=== PATIENT | female | born 1985 | race Caucasian/White ===

== ENCOUNTER 2017-03-21 14:51 | Emergency (ER) | payer SELFPAY ==
[2017-03-21] MEDS ORDERED: LEVONORGESTREL 1.5 MG TABLET (1 TAB/ER-USE) PO ONE ×2 (16:26→20:30)
[2017-03-21] MEDS ORDERED: LIDOCAINE 1% INJ-PF (10 MG/ML) 30 ML SDV INJ ONE ×2 (16:26→20:00)
[2017-03-21] MEDS ORDERED: AZITHROMYCIN 250 MG TABLET PO ONE ×2 (16:26→20:30)
[2017-03-21] MEDS ORDERED: CEFTRIAXONE INJ 250 MG VIAL IM ONE ×2 (16:26→20:30)
[2017-03-21] MEDS ORDERED: EMTRICITABINE/TENOFOVIR 200-300 MG TAB (3 TAB/ER DISP) PO PRN (16:28)
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
[2017-03-21 17:41] LABS: ABSOLUTE EOSINOPHILS # (AUTO) 0.1 10^3/uL (0.0-0.6); ABSOLUTE LYMPHOCYTES (AUTO) 1.7 10^3/uL (0.5-4.7); ABSOLUTE MONOCYTES (AUTO) 0.4 10^3/uL (0.1-1.4); ABSOLUTE NEUT (AUTO) 5.2 10^3/uL (1.7-8.2); BASOPHILS % (AUTO) 0.6 % (0-2); EOSINOPHILS % (AUTO) 1.2 % (0-6); HEMATOCRIT 36.9 % (36.0-47.0); HGB HCT DIFFERENCE 2.1; LYMPHOCYTES % (AUTO) 22.4 % (13-45); MEAN CORPUSCULAR HEMOGLOBIN 31.5 pg (27.0-33.4); MEAN CORPUSCULAR HGB CONC 35.2 g/dL (32.0-36.0); MEAN CORPUSCULAR VOLUME 90 fl (80-97); MONOCYTES % (AUTO) 5.7 % (3-13); RED BLOOD COUNT 4.12 10^6/uL (3.72-5.28); RED CELL DISTRIBUTION WIDTH 13.1 % (11.5-14.0); SEGMENTED NEUTROPHILS % (AUTO) 70.1 % (42-78); WHITE BLOOD COUNT 7.4 10^3/uL (4.0-10.5)
[2017-03-21 17:45] LABS: APPEARANCE,URINE CLEAR; BILIRUBIN,URINE NEGATIVE (NEGATIVE); GLUCOSE, URINE NEGATIVE (NEGATIVE); KETONES,URINE NEGATIVE (NEGATIVE); LEUKOCYTE ESTERASE,URINE NEGATIVE (NEGATIVE); NITRITE,URINE NEGATIVE (NEGATIVE); PROTEIN,URINE NEGATIVE (NEGATIVE); URINE SPECIFIC GRAVITY 1.018; UROBILINOGEN,URINE NEGATIVE mg/dL (<2.0)
[2017-03-21 17:56] LABS: ALANINE AMINOTRANSFERASE 22 U/L (9-52); ALKALINE PHOSPHATASE 88 U/L (38-126); ANION GAP 10 (5-19); ASPARTATE AMINO TRANSFERASE 15 U/L (14-36); BILIRUBIN,DIRECT 0.3 mg/dL (0.0-0.4); BILIRUBIN,TOTAL 0.3 mg/dL (0.2-1.3); BLOOD UREA NITROGEN 15 mg/dL (7-20); CARBON DIOXIDE 25 mmol/L (22-30); CHLORIDE 105 mmol/L (98-107); CREATININE RESULT 0.75 mg/dL (0.52-1.25); GLUCOSE 107 mg/dL (75-110); SODIUM 139.7 mmol/L (137-145); TOTAL PROTEIN 6.9 g/dL (6.3-8.2)
[2017-03-21 18:36] LABS: ADD HIVPANEL? NO; HIV (1 AND 2) ANTIBODY NEGATIVE (NEGATIVE)
[2017-03-21] MEDS ORDERED: LIDOCAINE HCL 1% INJ (FOR 250 MG VIAL) INJ ONE (20:30)
[2017-03-21 21:09] LABS: CHLAM PCR NOT DETECTED (NOT DETECT)
[2017-03-21 22:14] VITALS: BP 130/89
== END 2017-03-21 21:30 | disposition home or self-care (01) ==
LOC: ER 14:51
DX: T74.21XA Adult sexual abuse, confirmed, initial encounter (principal); S70.12XA Contusion of left thigh, initial encounter; S70.11XA Contusion of right thigh, initial encounter; Y07.59 Other non-family member, perpetrator of maltreatment and neglect
CPT/HCPCS: 99285; 96372; 36415; 87210; 84703; 85025; 80053; 81001; 86701; 87491; 87591; A9270; J3490; J0696

== ENCOUNTER 2017-05-08 13:04 | Emergency (ER) | payer SELFPAY ==
--- NOTE | 2017-05-08 13:33 | ER Document Report ---
HPI - HPI Patient complains to provider of: Left index finger injury Onset: Other Onset/Duration: Sudden Quality of pain: Throbbing Severity: Moderate Pain Level: 3 Context: Patient states she jammed her left index finger about 3 weeks ago. Still having pain which radiates up the hand, and increased pain with flexing the finger. No previous medical treatment sought for this injury. Associated Symptoms: None Exacerbated by: Movement Relieved by: Denies Similar symptoms previously: No Recently seen / treated by doctor: No - ROS ROS below otherwise negative: Yes Systems Reviewed and Negative: Yes All other systems reviewed and negative - CONSTITUTIONAL Constitutional: DENIES: Fever - EENT EENT: DENIES: Congestion - NEURO Neurology: DENIES: Headache - CARDIOVASCULAR Cardiovascular: DENIES: Chest pain - RESPIRATORY Respiratory: DENIES: Trouble Breathing - GASTROINTESTINAL Gastrointestinal: DENIES: Abdominal Pain - URINARY Urinary: DENIES: Dysuria - REPRODUCTIVE Reproductive: DENIES: : - MUSCULOSKELETAL Musculoskeletal: REPORTS: Extremity pain - Left index finger - DERM Skin Color: Normal, [place] Past Medical History - General Information source: Patient - Social History Smoking Status: Never Smoker Frequency of alcohol use: None Drug Abuse: None Lives with: Family Family History: Reviewed & Not Pertinent, CVA - Mini strokes on her mother's side Patient has suicidal ideation: No Patient has homicidal ideation: No Renal/ Medical History: Reports: Hx Ovarian Cysts Past Surgical History: Reports: Hx Appendectomy, Hx Section - Immunizations Hx Diphtheria, Pertussis, Tetanus Vaccination: Yes Vertical Provider Document - CONSTITUTIONAL Agree With Documented VS: Yes Exam Limitations: No Limitations General Appearance: WD/WN, No Apparent Distress - INFECTION CONTROL TRAVEL OUTSIDE OF THE [place] IN LAST 30 DAYS: No COUNTRY TRAVELED TO/FROM: [place] - HEENT HEENT: Atraumatic, Normocephalic - RESPIRATORY Respiratory: Breath Sounds Normal, No Respiratory Distress - CARDIOVASCULAR Cardiovascular: Regular Rate, Regular Rhythm - GI/ABDOMEN Gastrointestinal: Abdomen Soft - MUSCULOSKELETAL/EXTREMETIES Musculoskeletal/Extremeties: Tender - Left index finger. Patient able to fully straighten out the finger, but when she tries to flex it pain increases. No bruising. Neurovascular and sensation intact., No Edema. negative: Eccymosis - NEURO Level of Consciousness: Awake, Alert, Appropriate - DERM Integumentary: Warm, Dry Course - Re-evaluation Re-evalutation: 05/08/17 14:16 X-ray showed small avulsion fracture and this was discussed with the patient. 05/08/17 14:23 - Vital Signs Vital signs: Temp Pulse Resp BP Pulse Ox 98.5 F 18 140/88 H 05/08/17 13:07 05/08/17 13:07 05/08/17 13:07 Procedures - Immobilization Left Finger Pre-Proc Neuro Vasc Exam: Normal Immobilizer type: Finger splint (Static), Sling Performed by: PCT Post-Proc Neuro Vasc Exam: Normal Alignment checked and good: Yes Discharge - Discharge Clinical Impression: Fracture of finger, left Qualifiers: Encounter type: initial encounter Finger: index finger Fracture type: closed Phalanx: proximal Fracture alignment: nondisplaced Qualified Code(s): S62.641A - Nondisplaced fracture of proximal phalanx of left index finger, initial encounter for closed fracture Condition: Good Disposition: HOME, SELF-CARE Additional Instructions: Ice and elevate finger, keep splint protection on until evaluated by orthopedic. Call tomorrow to schedule follow-up appointment with orthopedic Aleve every 12 hours with food, or [place] every 8 hours with food as needed for pain Ice and elevate Return as needed Prescriptions: Hydrocodone/Acetaminophen [Athena 5-325 mg Tablet] 1 tab PO PRN PRN #10 tablet PRN Reason: Referrals: JT MOMIN NP [Primary Care Provider] - Follow up as needed ERAN OHARA DO [ACTIVE STAFF] - Follow up as needed
--- NOTE | 2017-05-08 14:16 | RADIOLOGY REPORT (SQ) ---
EXAM DESCRIPTION: HAND LEFT 3 VIEWS COMPLETED DATE/TIME: 05/08/2017 1:54 pm REASON FOR STUDY: injury COMPARISON: None. EXAM PARAMETERS: NUMBER OF VIEWS: Three views. TECHNIQUE: AP, lateral and oblique radiographic images acquired of the left hand. LIMITATIONS: None. FINDINGS: MINERALIZATION: Normal. BONES: Along the radial aspect, base 2nd proximal phalanx, a tiny acute avulsion fragment is present marked with an arrow on the AP view. JOINTS: No effusions. SOFT TISSUES: No soft tissue swelling. No foreign body. OTHER: No other significant finding. IMPRESSION: Along the radial aspect, base 2nd proximal phalanx, a tiny acute avulsion fragment is pr esent TECHNICAL DOCUMENTATION: JOB ID: [id number] [employer]- All Rights Reserved
[2017-05-08 14:42] VITALS: BP 132/96
== END 2017-05-08 14:42 | disposition home or self-care (01) ==
LOC: ER 13:04
DX: S62.641A Nondisplaced fracture of proximal phalanx of left index finger, initial encounter for closed fracture (principal); X58.XXXA Exposure to other specified factors, initial encounter
CPT/HCPCS: 99283